=== PATIENT | male | born 1945 | race Caucasian/White ===

== ENCOUNTER 2016-09-30 01:53 | Emergency (ER) | payer MEDICARE ==
[2016-09-30 02:35] LABS: BASOPHILS 0.3 % (0.0-2.0); EOSINOPHILS 0.3 % (0-7); HEMATOCRIT 40.9 % (42.0-54.0); IMMATURE GRANULOCYTES 0.1 % (0-5); LYMPHOCYTES 65.9 % (15-50); MCH 34.1 pg (26.0-34.0); MCHC 34.2 g/dL (31.0-37.0); MCV 99.8 fL (80.0-100.0); MEAN PLATELET VOLUME 9.7 fL (7.4-10.4); MONOCYTES 5.5 % (2-11); NEUTROPHILS 27.9 % (40-80); PLATELET COUNT 154 10x3/uL (130-400); WBC 7.3 10x3/uL (4.8-10.8)
[2016-09-30 02:54] LABS: ALBUMIN 3.6 g/dL (3.4-5.0); ALKALINE PHOSPHATASE 53 U/L (46-116); ALT (SGPT) 21 U/L (10-68); BILIRUBIN - TOTAL 1.72 mg/dL (0.2-1.3); CALC OSMOLALITY 283 mosm/kg (275-300); CALCIUM 8.5 mg/dL (8.5-10.1); CHLORIDE - SERUM 107 mmol/L (98-107); CREATININE - SERUM 0.8 mg/dL (0.6-1.3); GLUCOSE 99 mg/dL (74-106); POTASSIUM - SERUM 3.5 mmol/L (3.5-5.1); PROTEIN - SERUM 6.6 g/dL (6.4-8.2); SODIUM 142 mmol/L (136-145); UREA NITROGEN 16 mg/dL (7-18); eGFR NON AFRICAN AMERICAN > 90 mL/min (90-120)
[2016-09-30 03:03] LABS: CHOLESTEROL, TOTAL 165 mg/dL (0-200); CKMB 2.7 U/L (0.0-3.6); CREATINE KINASE 111 UL (21-232); HDL CHOLESTEROL 56 mg/dL (32-96); LDL CHOLESTEROL 96 mg/dL (0-100); LDL-HDL RATIO 1.7 ratio (1.5-3.5); TRIGLYCERIDE 67 mg/dL (30-200); TROPONIN-I < 0.017 ng/mL (0.000-0.060)
== END 2016-09-30 04:37 | disposition home or self-care (01) ==
LOC: D.ER 01:53
PROVIDERS: Emergency Medicine
DX: K21.9 Gastro-esophageal reflux disease without esophagitis (principal); I10 Essential (primary) hypertension

== ENCOUNTER 2018-05-19 07:48 | Emergency (ER) | payer MEDICARE ==
[~2018-05-19] VITALS: Ht 180.3 cm; Wt 82.7 kg
[2018-05-19 07:52] VITALS: Ht 180.3 cm; Wt 82.7 kg
[2018-05-19] MEDS ORDERED: CADUET 10 MG/201 TAB (07:56)
[2018-05-19] MEDS ORDERED: FUROSEMIDE40 MG PO (07:57)
[2018-05-19] MEDS ORDERED: K-TAB10 MEQ PO (07:57)
[2018-05-19 08:21] LABS: BASOPHILS 0.1 % (0-2); EOSINOPHILS 0 % (0-7); HEMATOCRIT 43.2 % (42.0-54.0); HEMOGLOBIN 15.1 g/dL (13.5-17.5); IMMATURE GRANULOCYTES 0.2 % (0-5); LYMPHOCYTES 39.9 % (15-50); MCH 34.3 pg (26.0-34.0); MCV 98.2 fL (80.0-100.0); MEAN PLATELET VOLUME 9.4 fL (7.4-10.4); MONOCYTES 8.5 % (2-11); NEUTROPHILS 51.3 % (40-80); WBC 11.5 10x3/uL (4.8-10.8)
[2018-05-19 08:23] LABS: PLATELET COUNT 194 10x3/uL (130-400)
[2018-05-19 08:35] LABS: ALBUMIN 3.8 g/dL (3.4-5.0); ALKALINE PHOSPHATASE 58 U/L (46-116); ALT (SGPT) 27 U/L (10-68); BILIRUBIN - TOTAL 2.74 mg/dL (0.2-1.3); CALC OSMOLALITY 285 mosm/kg (275-300); CARBON DIOXIDE 28.4 mmol/L (21.0-32.0); CHLORIDE - SERUM 101 mmol/L (98-107); CREATININE - SERUM 1.1 mg/dL (0.6-1.3); POTASSIUM - SERUM 3.5 mmol/L (3.5-5.1); PROTEIN - SERUM 7.2 g/dL (6.4-8.2); SODIUM 141 mmol/L (136-145); UREA NITROGEN 14 mg/dL (7-18); eGFR NON AFRICAN AMERICAN 69 mL/min (90-120)
[2018-05-19 08:40] LABS: GLUCOSE 167 mg/dL (74-106)
[2018-05-19 08:44] LABS: LIPASE 159 U/L (73-393); PRO BNP 85 pg/mL (0-125)
[2018-05-19 08:46] LABS: TROPONIN-I < 0.017 ng/mL (0.000-0.060)
[2018-05-19] MEDS ORDERED: OMEPRAZOLE20 M1 PO (09:05)
[2018-05-19 09:15] VITALS: BP 117/70
[2018-05-21 13:28] VITALS: Ht 180.3 cm; Wt 82.7 kg
== END 2018-05-19 09:15 | disposition home or self-care (01) ==
LOC: D.ER 07:48
PROVIDERS: Family Medicine
DX: R10.13 Epigastric pain (principal); R11.2 Nausea with vomiting, unspecified; I10 Essential (primary) hypertension

== ENCOUNTER 2018-05-20 10:13 | Inpatient (IN) | payer MEDICARE ==
[~2018-05-20] VITALS: Ht 180.3 cm; Wt 82.6 kg
--- NOTE | ~2018-05-20 | MORECARE ---
CASE MANAGEMENT DISCHARGE SUMMARY PATIENT: DAVID MARTINEZ UNIT: [id number] ADM DATE: 05/20/18 AGE: 73 : 44 SEX: M ROOM/BED: D.2216 AUTHOR: PATRIZIA BASILIO PHYSICIAN: REFERRING PHYSICIAN: RADHA MELGOZA MD DATE OF SERVICE: 05/21/18 Discharge Plan Patient Name: DAVID MARTINEZ Facility: [facility]:[place] : 1945 Planned Disposition: Home Anticipated Discharge Date: Discharge Date: Expected LOS: Initial Reviewer: [email or web address] Initial Review Date: 05/20/2018 Generated: 05/21/18 12:26 pm Patient Name: DAVID MARTINEZ Page 30213 at 1126 All edits/amendments must be made on the electronic document DICTATION DATE: 05/21/18 112 BUS VAN DRIVER: DEONNA 05/21/18 1126 RPT#: [id number] DC DATE: STATUS: ADM IN [facility] [address] [place] [address] END OF REPORT
--- NOTE | ~2018-05-20 | MORECARE ---
CASE MANAGEMENT DISCHARGE SUMMARY PATIENT: DAVID MARTINEZ UNIT: [id number] ADM DATE: 05/20/18 AGE: 73 : 44 SEX: M ROOM/BED: D.2216 AUTHOR: PATRIZIA BASILIO PHYSICIAN: REFERRING PHYSICIAN: RADHA MELGOZA MD DATE OF SERVICE: 05/23/18 Discharge Plan Patient Name: DAVID MARTINEZ Facility: [facility]:[place] : 1945 Planned Disposition: Home Anticipated Discharge Date: Discharge Date: Expected LOS: Initial Reviewer: [email or web address] Initial Review Date: 05/20/2018 Generated: 05/23/18 10:57 am Comments DCP- Discharge Planning Updated by [email or web address]: Charleen Goyal on 05/23/18 8:[address] Patient Name: DAVID MARTINEZ Encounter No: [id number] : 1945 Primary Insurance: MEDICARE A & B Anticipated DC Date: Planned Disposition: Home External Planned Provider: : DCP follow-up note: Patient and family in agreement with discharge plan. IMM served and explained.No changes to plan. Case management will follow and assist as needed. Charleen Goyal DCP- Discharge Planning Updated by [email or web address]: Charleen Goyal on 05/21/18 10:[address] Patient Name: DAVID MARTINEZ Admission Status: ER Accout number: [id number] Admission Date: 05-20-2018 : 1945 Admission Diagnosis: Attending: RADHA MELGOZA Current LOS: 1 Anticipated DC Date: Planned Disposition: Home Primary Insurance: MEDICARE A & B Discharge Planning Comments: CM met with patient to assess discharge planning needs. Patient lives with his who will be his transportation driver home at discharge. He states that he is independent with her care. Denies any DME or HH and does not think he will need anything at discharge. States his home is safe. CM will continue to follow and assist with DC planning as needed Fleet Administrator: Charleen Goyal DCPIA - Discharge Planning Initial Assessment Updated by [email or web address]: Charleen Goyal on 05/21/18 11:45 am * Is the patient Alert and Oriented? Yes * How many steps to enter\exit or inside your home? * PCP DR GWYN SHANNON [place] * Pharmacy [facility] * Preadmission Environment Home with Family * ADLs Independent * Equipment None * List name and contact numbers for known caregivers / representatives who currently or will assist patient after discharge: MIKAELA () [phone] * Verbal permission to speak to the caregivers and representatives has been obtained from the patient. N/A * Community resources currently utilized None * Additional services required to return to the preadmission environment? No * Can the patient safely return to the preadmission environment? Yes * Has this patient been hospitalized within the prior 30 days at any hospital? No Coverage Notice Reviewer: [email or web address] Winnie Goyal Notice Issued Date-Time: 05/23/2018 9:54 Notice Type: IM Discharge Notice Notice Delivered To: Patient Relationship to Patient: Harness Cleaner Name: Delivery Method: HAND - Hand Delivered Denise Days: Prior Verbal Notification: Recipient Understood Notice: Yes Recipient Signature: Yes Med Rec Note Co-signed by Attending: Coverage Notice Comment: Last DP export: 05/21/18 10:48 Patient Name: DAVID MARTINEZ Page 26148 at 0957 All edits/amendments must be made on the electronic document DICTATION DATE: 05/23/18956 SLAB INSTALLER: DEONNA 05/23/18956 RPT#: [id number] DC DATE: STATUS: ADM IN [facility] [address] [place] [address] END OF REPORT
--- NOTE | ~2018-05-20 | MORECARE ---
CASE MANAGEMENT DISCHARGE SUMMARY PATIENT: DAVID MARTINEZ UNIT: [id number] ADM DATE: 05/20/18 AGE: 73 : 44 SEX: M ROOM/BED: D.2216 AUTHOR: PATRIZIA BASILIO PHYSICIAN: REFERRING PHYSICIAN: RADHA MELGOZA MD DATE OF SERVICE: 05/27/18 Discharge Plan Patient Name: DAVID MARTINEZ Facility: [facility]:[place] : 1945 Planned Disposition: Home Anticipated Discharge Date: Discharge Date: 05/23/2018 Expected LOS: 0 Initial Reviewer: [email or web address] Initial Review Date: 05/20/2018 Generated: 05/27/18 11:13 am Comments DCP- Discharge Planning Updated by [email or web address]: Charleen Goyal on 05/23/18 8:[address] Patient Name: DAVID MARTINEZ Encounter No: [id number] : 1945 Primary Insurance: MEDICARE A & B Anticipated DC Date: Planned Disposition: Home External Planned Provider: : DCP follow-up note: Patient and family in agreement with discharge plan. IMM served and explained.No changes to plan. Case management will follow and assist as needed. Charleen Goyal DCP- Discharge Planning Updated by [email or web address]: Charleen Goyal on 05/21/18 10:[address] Patient Name: DAVID MARTINEZ Admission Status: ER Accout number: [id number] Admission Date: 05-20-2018 : 1945 Admission Diagnosis: Attending: RADHA MELGOZA Current LOS: 1 Anticipated DC Date: Planned Disposition: Home Primary Insurance: MEDICARE A & B Discharge Planning Comments: CM met with patient to assess discharge planning needs. Patient lives with his who will be his front loader residential driver home at discharge. He states that he is independent with her care. Denies any DME or HH and does not think he will need anything at discharge. States his home is safe. CM will continue to follow and assist with DC planning as needed Strand Buncher Fine Wire: Charleen Goyal DCPIA - Discharge Planning Initial Assessment Updated by [email or web address]: Charleen Goyal on 05/21/18 11:45 am * Is the patient Alert and Oriented? Yes * How many steps to enter\exit or inside your home? * PCP DR GWYN SHANNON IN [place] * Pharmacy [facility] * Preadmission Environment Home with Family * ADLs Independent * Equipment None * List name and contact numbers for known caregivers / representatives who currently or will assist patient after discharge: MIKAELA () [phone] * Verbal permission to speak to the caregivers and representatives has been obtained from the patient. N/A * Community resources currently utilized None * Additional services required to return to the preadmission environment? No * Can the patient safely return to the preadmission environment? Yes * Has this patient been hospitalized within the prior 30 days at any hospital? No Coverage Notice Reviewer: [email or web address] Winnie Goyal Notice Issued Date-Time: 05/23/2018 9:54 Notice Type: IM Discharge Notice Notice Delivered To: Patient Relationship to Patient: Correction Officer Reformatory Name: Delivery Method: HAND - Hand Delivered Denise Days: Prior Verbal Notification: Recipient Understood Notice: Yes Recipient Signature: Yes Med Rec Note Co-signed by Attending: Coverage Notice Comment: Last DP export: 05/23/18 8:57 Patient Name: DAVID MARTINEZ Page 59880 at 1013 All edits/amendments must be made on the electronic document DICTATION DATE: 05/27/18 1013 GLOBAL RISK MANAGEMENT DIRECTOR: DEONNA 05/27/18 1013 RPT#: [id number] DC DATE:05/23/18 STATUS: DIS IN [facility] [address] [place] [address] END OF REPORT
--- NOTE | ~2018-05-20 | MORECARE ---
CASE MANAGEMENT DISCHARGE SUMMARY PATIENT: DAVID MARTINEZ UNIT: [id number] ADM DATE: 05/20/18 AGE: 73 : 44 SEX: M ROOM/BED: D.2216 AUTHOR: PATRIZIA BASILIO PHYSICIAN: REFERRING PHYSICIAN: RADHA MELGOZA MD DATE OF SERVICE: 05/21/18 Discharge Plan Patient Name: DAVID MARTINEZ Facility: [facility]:[place] : 1945 Planned Disposition: Home Anticipated Discharge Date: Discharge Date: Expected LOS: Initial Reviewer: [email or web address] Initial Review Date: 05/20/2018 Generated: 05/21/18 12:48 pm Comments DCP- Discharge Planning Updated by [email or web address]: Charleen Goyal on 05/21/18 10:[address] Patient Name: DAVID MARTINEZ Admission Status: ER Accout number: [id number] Admission Date: 05-20-2018 : 1945 Admission Diagnosis: Attending: RADHA MELGOZA Current LOS: 1 Anticipated DC Date: Planned Disposition: Home Primary Insurance: MEDICARE A & B Discharge Planning Comments: CM met with patient to assess discharge planning needs. Patient lives with his who will be his limousine driver home at discharge. He states that he is independent with her care. Denies any DME or HH and does not think he will need anything at discharge. States his home is safe. CM will continue to follow and assist with DC planning as needed Lathe Scalper Operator: Charleen Goyal DCPIA - Discharge Planning Initial Assessment Updated by [email or web address]: Charleen Goyal on 05/21/18 11:45 am * Is the patient Alert and Oriented? Yes * How many steps to enter\exit or inside your home? * PCP DR GWYN SHANNON IN [place] * Pharmacy [facility] * Preadmission Environment Home with Family * ADLs Independent * Equipment None * List name and contact numbers for known caregivers / representatives who currently or will assist patient after discharge: MIKAELA () [phone] * Verbal permission to speak to the caregivers and representatives has been obtained from the patient. N/A * Community resources currently utilized None * Additional services required to return to the preadmission environment? No * Can the patient safely return to the preadmission environment? Yes * Has this patient been hospitalized within the prior 30 days at any hospital? No Last DP export: 05/21/18 10:26 Patient Name: DAVID MARTINEZ Page 44112 at 1148 All edits/amendments must be made on the electronic document DICTATION DATE: 05/21/181146 AIRFREIGHT LOADING SUPERVISOR: DEONNA 05/21/181146 RPT#: [id number] DC DATE: STATUS: ADM IN [facility] [address] [place] [address] END OF REPORT
[~2018-05-20 10:13] MED LIST: CADUET 10 MG/201 TAB; FUROSEMIDE40 MG PO; K-TAB10 MEQ PO; OMEPRAZOLE20 M1 PO
[2018-05-20 13:33] LABS: BASOPHILS 0.1 % (0-2); EOSINOPHILS 0 % (0-7); HEMATOCRIT 42.2 % (42.0-54.0); IMMATURE GRANULOCYTES 0.1 % (0-5); LYMPHOCYTES 27.5 % (15-50); MCH 34.7 pg (26.0-34.0); MCHC 35.5 g/dL (31.0-37.0); MCV 97.7 fL (80.0-100.0); MEAN PLATELET VOLUME 9.4 fL (7.4-10.4); MONOCYTES 6.9 % (2-11); NEUTROPHILS 65.4 % (40-80); PLATELET COUNT 177 10x3/uL (130-400); RBC 4.32 10x6/uL (4.20-6.10)
[2018-05-20 13:48] LABS: ALBUMIN 3.4 g/dL (3.4-5.0); ANION GAP 15.8 mmol/L (8-16); BILIRUBIN - TOTAL 4.02 mg/dL (0.2-1.3); CALCIUM 8.7 mg/dL (8.5-10.1); CARBON DIOXIDE 27.1 mmol/L (21.0-32.0); CREATININE - SERUM 1.1 mg/dL (0.6-1.3); POTASSIUM - SERUM 3.9 mmol/L (3.5-5.1); PROTEIN - SERUM 7.7 g/dL (6.4-8.2)
[2018-05-20 13:55] LABS: WBC 14.8 10x3/uL (4.8-10.8)
[2018-05-20 15:27] LABS: AMYLASE - SERUM 57 U/L (25-115); LIPASE 126 U/L (73-393)
[2018-05-20 15:50] LABS: APPEARANCE CLEAR (CLEAR); BILIRUBIN NEGATIVE (NEGATIVE); COLOR DK YELLOW (YELLOW); GLUCOSE NEGATIVE (NEGATIVE); KETONE SMALL mg/dL (NEGATIVE); NITRITE NEGATIVE (NEGATIVE); PROTEIN 1+ mg/dL (NEGATIVE); RED CELLS - URINE OCC /hpf (0-5); SPECIFIC GRAVITY 1.025 (1.005-1.020); UROBILINOGEN NORMAL (NORMAL); WHITE CELLS - URINE OCC /hpf (0-5)
[2018-05-20 15:51] LABS: BACTERIA FEW /hpf (NONE SEEN); EPITHELIAL CELLS OCC /hpf (0-5)
[2018-05-20 18:38] VITALS: BP 124/70; BMI 25.4
[2018-05-20 21:17] VITALS: BP 118/66
[2018-05-21 05:04] VITALS: BP 138/84
[2018-05-21 05:07] LABS: BASOPHILS 0.1 % (0-2); EOSINOPHILS 0 % (0-7); HEMATOCRIT 36.4 % (42.0-54.0); HEMOGLOBIN 13.5 g/dL (13.5-17.5); IMMATURE GRANULOCYTES 0.2 % (0-5); LYMPHOCYTES 29.8 % (15-50); MCH 36.1 pg (26.0-34.0); MCHC 37.1 g/dL (31.0-37.0); MCV 97.3 fL (80.0-100.0); MEAN PLATELET VOLUME 9.2 fL (7.4-10.4); MONOCYTES 7.2 % (2-11); NEUTROPHILS 62.7 % (40-80); PLATELET COUNT 152 10x3/uL (130-400); RBC 3.74 10x6/uL (4.20-6.10); RDW 13.2 % (11.5-14.5)
[2018-05-21 05:19] LABS: INR 1.21 (0.85-1.17); PROTIME 14.9 SECONDS (11.6-15.0)
[2018-05-21 05:22] LABS: ALBUMIN 2.7 g/dL (3.4-5.0); ALKALINE PHOSPHATASE 64 U/L (46-116); BILIRUBIN - TOTAL 4.26 mg/dL (0.2-1.3); CALC OSMOLALITY 280 mosm/kg (275-300); CALCIUM 8.1 mg/dL (8.5-10.1); CARBON DIOXIDE 23.5 mmol/L (21.0-32.0); CHLORIDE - SERUM 104 mmol/L (98-107); GLUCOSE 141 mg/dL (74-106); LIPASE 322 U/L (73-393); MAGNESIUM - SERUM 1.6 mg/dL (1.8-2.4); POTASSIUM - SERUM 3.5 mmol/L (3.5-5.1); PROTEIN - SERUM 6.5 g/dL (6.4-8.2); SODIUM 139 mmol/L (136-145); UREA NITROGEN 14 mg/dL (7-18); eGFR NON AFRICAN AMERICAN 78 mL/min (90-120)
[2018-05-21 05:31] LABS: ALT (SGPT) 30 U/L (10-68); AMYLASE - SERUM 137 U/L (25-115)
[2018-05-21 08:18] VITALS: BP 135/72
[2018-05-21 12:18] VITALS: BP 136/71
[2018-05-21 13:28] VITALS: Ht 180.3 cm; Wt 82.6 kg
[2018-05-21 17:49] VITALS: BP 138/76
[2018-05-21 21:21] VITALS: BP 132/78
[2018-05-22] VITALS (9 sets, daily range): BP systolic 112–153; BP diastolic 59–87
[2018-05-22 05:46] LABS: BASOPHILS 0.1 % (0-2); EOSINOPHILS 0.2 % (0-7); HEMATOCRIT 36.9 % (42.0-54.0); HEMOGLOBIN 12.9 g/dL (13.5-17.5); IMMATURE GRANULOCYTES 0.1 % (0-5); LYMPHOCYTES 33.7 % (15-50); MCH 34.2 pg (26.0-34.0); MCV 97.9 fL (80.0-100.0); MEAN PLATELET VOLUME 9.4 fL (7.4-10.4); MONOCYTES 6.8 % (2-11); NEUTROPHILS 59.1 % (40-80); PLATELET COUNT 170 10x3/uL (130-400); RBC 3.77 10x6/uL (4.20-6.10); RDW 13.2 % (11.5-14.5); WBC 14.4 10x3/uL (4.8-10.8)
[2018-05-22 06:19] LABS: INR 1.35 (0.85-1.17); PROTIME 16.2 SECONDS (11.6-15.0)
[2018-05-22 06:43] LABS: ALBUMIN 2.4 g/dL (3.4-5.0); ANION GAP 15.8 mmol/L (8-16); BILIRUBIN - TOTAL 4.13 mg/dL (0.2-1.3); CALCIUM 7.8 mg/dL (8.5-10.1); CARBON DIOXIDE 22.8 mmol/L (21.0-32.0); CREATININE - SERUM 1.1 mg/dL (0.6-1.3); POTASSIUM - SERUM 3.6 mmol/L (3.5-5.1); PROTEIN - SERUM 6.3 g/dL (6.4-8.2)
[2018-05-22 12:17] LABS: HEPATITIS C ANTIBODY <0.1 (0.0-0.9)
[2018-05-23 04:35] VITALS: BP 107/64
[2018-05-23 05:55] LABS: BASOPHILS 0 % (0-2); EOSINOPHILS 0 % (0-7); HEMATOCRIT 33.8 % (42.0-54.0); HEMOGLOBIN 11.7 g/dL (13.5-17.5); IMMATURE GRANULOCYTES 0.1 % (0-5); MCHC 34.6 g/dL (31.0-37.0); MCV 98.3 fL (80.0-100.0); MEAN PLATELET VOLUME 9.4 fL (7.4-10.4); MONOCYTES 3.6 % (2-11); NEUTROPHILS 57.3 % (40-80); PLATELET COUNT 198 10x3/uL (130-400); RBC 3.44 10x6/uL (4.20-6.10); RDW 13.3 % (11.5-14.5); WBC 11.9 10x3/uL (4.8-10.8)
[2018-05-23 06:35] LABS: ALBUMIN 2.1 g/dL (3.4-5.0); ALKALINE PHOSPHATASE 74 U/L (46-116); ALT (SGPT) 50 U/L (10-68); BILIRUBIN - DIRECT 0.63 mg/dL (0.00-0.30); BILIRUBIN - TOTAL 1.95 mg/dL (0.2-1.3); CALC OSMOLALITY 287 mosm/kg (275-300); CALCIUM 7.6 mg/dL (8.5-10.1); CARBON DIOXIDE 22.4 mmol/L (21.0-32.0); CHLORIDE - SERUM 109 mmol/L (98-107); GLUCOSE 164 mg/dL (74-106); SODIUM 141 mmol/L (136-145); UREA NITROGEN 20 mg/dL (7-18); eGFR NON AFRICAN AMERICAN 78 mL/min (90-120)
[2018-05-23] MEDS ORDERED: HYDROCODON-ACE1 EAC7 PO (08:26)
[2018-05-23] MEDS ORDERED: BACTRIM 400-801 TAB PO (08:26)
[2018-05-23 09:45] VITALS: BP 103/73
[2018-05-23 13:20] VITALS: BP 133/70
== END 2018-05-23 15:50 | disposition home or self-care (01) | DRG 418 ==
LOC: D.ER 10:13 → D.EDHOLD 16:05 → D.MS 16:05
PROVIDERS: Family Medicine; Internal Medicine Nephrology; Surgery
PROC: BF121ZZ Fluoroscopy of Gallbladder using Low Osmolar Contrast (ICD-10-PCS; 2018-05-22)
PROC: 0FT44ZZ Resection of Gallbladder, Percutaneous Endoscopic Approach (ICD-10-PCS; principal; 2018-05-22 12:00)
DX: K80.00 Calculus of gallbladder with acute cholecystitis without obstruction (principal); I42.9 Cardiomyopathy, unspecified; K82.A1 Gangrene of gallbladder in cholecystitis; K21.9 Gastro-esophageal reflux disease without esophagitis; I10 Essential (primary) hypertension; E80.4 Gilbert syndrome; D64.9 Anemia, unspecified; E83.42 Hypomagnesemia; I34.0 Nonrheumatic mitral (valve) insufficiency